=== PATIENT | female | born 1975 | race American Indian/Alaskan Native ===

== ENCOUNTER 2018-09-13 13:02 | Emergency (ER) | payer OTHER ==
[2018-09-13 14:14] LABS: Bilirubin,Urine NEG (Negative); Blood,Urine MOD (Negative); Color,Urine Yellow (Yellow); Mucus,Urine 1+ /HPF; Protein,Urine <15 mg/dL mg/dL (Negative); Urobilinogen,Urine < 2.0 mg/dL (<2.0)
[2018-09-13 14:15] LABS: HCG Qualitative,Urine Negative (Negative)
--- NOTE | 2018-09-13 14:37 | Emergency Department Report ---
Minor Respiratory - HPI Chief Complaint: Abdominal Pain Stated Complaint: ABD PAIN/CHEST PAIN Time Seen by Provider: 09/13/18 14:23 Duration: Today Severity: mild Minor Respiratory: Yes Able to Tolerate Fluids, No Rhinorrhea, No Sore Throat, No Ear Pain, No Cough, No Sick Contacts, No Hemoptysis, No Chest Pain, No Shortness of Breath, No Fever Other History: 3-year-old female comes to the ER today complaining that "he was septic and I want to make sure I'm not getting something." Patient then asked for a work note ED Review of Systems ROS: Stated complaint: ABD PAIN/CHEST PAIN Other details as noted in HPI Comment: SEE HPI ED Past Medical Hx - Past Medical History Previous Medical History?: Yes Additional medical history: fibroids - Surgical History Past Surgical History?: No - Social History Smoking Status: Never Smoker Substance Use Type: Alcohol Minor Respiratory Exam - Exam General: Vital signs noted. No distress. Alert and acting appropriately. HEENT: Yes Moist Mucous Membranes, No Pharyngeal Erythema, No Pharyngeal Exudates, No Rhinorrhea, No Conjuctival Injection Ear: Neither TM Bulge, Neither TM Erythema, Neither EAC Pain, Neither EAC Discharge Neck: No Adenopathy, No Supple Lungs: Yes Good Air Exchange, No Wheezes, No [place], No Stridor, No Cough, No Labored Respirations, No Retractions, No Use of Accessory Muscles, No Other Abnormal Lung Sounds Heart: Yes Regular, No Murmur Abdomen: Yes Normal Bowel Sounds, No Tenderness, No Peritoneal Signs Skin: No Rash, No Edema Neurologic: Alert and oriented, no deficits. Musculoskeletal: Unremarkable. ED Course Vital Signs 09/13/18 13:07 Temperature 98.8 F Pulse Rate 68 Respiratory 16 Rate Blood Pressure 149/57 O2 Sat by Pulse 99 Oximetry ED Medical Decision Making - Medical Decision Making Labs 09/13/18 Unknown Urine Color Yellow Urine Turbidity Clear Urine pH 7.0 Ur Specific [place] 1.017 Urine Protein <15 mg/dl Urine Glucose (UA) Neg Urine Ketones Neg Urine Blood Mod Urine Nitrite Neg Urine Bilirubin Neg Urine Urobilinogen < 2.0 Ur Leukocyte Esterase Neg Urine WBC (Auto) 2.0 Urine RBC (Auto) 6.0 U Epithel Cells (Auto) 3.0 Urine Mucus 1+ Urine HCG, Qual Negative URINE NOTED PT HAS KNOWN FIBROIDS SEE HPI DC HOME - Differential Diagnosis SIMPLE URI- WORK NOTE Critical care attestation.: If time is entered above; I have spent that time in minutes in the direct care of this critically ill patient, excluding procedure time. ED Disposition Clinical Impression: Common cold Disposition: DC-01 TO HOME OR SELFCARE Is pt being admited?: No Does the pt Need Aspirin: No Condition: Stable Additional Instructions: OTC SYMPTOM RELIEF Forms: Work/School Release Form(ED) Time of Disposition: 14:36
[2018-09-13 15:35] VITALS: BP 149/57
== END 2018-09-13 14:56 | disposition home or self-care (01) ==
LOC: ED 13:02
DX: J00 Acute nasopharyngitis [common cold] (principal)
CPT/HCPCS: 81001; 81025; 99283